=== PATIENT | female | born 1965 | race Caucasian/White ===

== ENCOUNTER → 2017-01-26 | Outpatient (CLI) | payer OTHER ==
[~2017-01-26] MED LIST: ALPR.5 PO; ASPI325 PO; Flonase 0.05% N16 GM; METHI10 PO; METO100ER PO; METO50 PO; MIRT15 PO; PSEU120ER PO; Prednisone20 MG PO
[2017-01-26 11:05] LABS: Free Thyroxine 3.03 ng/dL (0.70-1.60)
[2017-01-26 11:10] LABS: Thyroid Stimulating Hormone <0.007 uIU/mL (0.360-4.800)
== END | disposition home or self-care (01) ==
LOC: LAB EV 10:43
PROVIDERS: Physician Assistant
DX: E05.00 Thyrotoxicosis with diffuse goiter without thyrotoxic crisis or storm (principal)
CPT/HCPCS: 84439; 84443; 84481

== ENCOUNTER 2017-05-02 10:44 | Emergency (ER) | payer OTHER ==
[~2017-05-02] VITALS: Ht 157.5 cm; Wt 45.4 kg
[2017-05-02 11:11] LABS: BASOPHILS ABSOLUTE AUTO 0.02 K/mm3 (0.00-0.23); BASOPHILS PERCENT AUTO 0 % (0-2); EOSINOPHILS ABSOLUTE AUTO 0.08 K/mm3 (0.00-0.68); EOSINOPHILS PERCENT AUTO 1 % (0-6); Hematocrit 41.3 % (33.0-51.0); Hemoglobin 13.4 g/dL (11.5-16.0); IMMATURE GRAN ABSOLUTE AUTO 0.01 K/mm3 (0.00-0.10); IMMATURE GRAN PERCENT AUTO 0 % (0-1); LYMPHOCYTES PERCENT AUTO 44 % (21-46); MONOCYTES ABSOLUTE AUTO 0.64 K/mm3 (0.16-1.47); MONOCYTES PERCENT AUTO 10 % (4-13); Mean Corpuscular HGB 27.9 pg (26.0-34.0); Mean Corpuscular HGB Conc 32.4 g/dL (31.5-36.5); Mean Corpuscular Volume 86 fL (80-100); NEUTROPHILS ABSOLUTE AUTO 3.01 K/mm3 (1.96-9.15); NEUTROPHILS PERCENT AUTO 45 % (41-73); Platelet Count 252 K/mm3 (150-400); RDW Coefficient Variation 13.7 % (11.7-14.2); RDW Standard Deviation 42.7 fL (35.1-46.3); White Blood Cell Count 6.66 K/mm3 (4.00-11.30)
[2017-05-02] MEDS ORDERED: MIRT15 PO (11:33)
[2017-05-02] MEDS ORDERED: METO50 PO (11:33)
[2017-05-02] MEDS ORDERED: ALPR.5 PO (11:33)
[2017-05-02] MEDS ORDERED: ASPI325 PO (11:34)
[2017-05-02 11:50] LABS: Troponin I <0.015 ng/mL (0.000-0.040)
[2017-05-02 11:57] LABS: Alanine Aminotransfer (ALT/SGP 20 U/L (12-78); Albumin, Blood 3.2 g/dL (3.4-5.0); Albumin/Globulin Ratio 0.8 (0.8-1.8); Alk Phos 116 U/L (50-136); Anion Gap 9 mmol/L (6-16); Aspartate Aminotrans (AST/SGOT 42 U/L (12-37); Bilirubin, Total 0.5 mg/dL (0.1-1.0); Blood Urea Nitrogen 11 mg/dL (8-24); Bun/Creatinine Ratio 25.3 (12.0-20.0); CO2, Blood 25 mmol/L (21-32); Calcium, Blood 9.7 mg/dL (8.5-10.1); Chloride, Blood 105 mmol/L (98-108); Creatinine, Blood 0.43 mg/dL (0.40-1.00); Globulin, Blood 3.9 g/dL (2.2-4.0); Glomerular Filtration Rate >60 (60-); Glucose, Blood 107 mg/dL (70-99); Potassium, Blood 4.3 mmol/L (3.5-5.5); Sodium, Blood 139 mmol/L (136-145); Thyroid Stimulating Hormone <0.005 uIU/mL (0.360-4.800); Total Protein, Blood 7.1 g/dL (6.4-8.2)
[2017-12-17] MEDS ORDERED: Prednisone20 MG PO (04:46)
== END 2017-05-02 13:20 | disposition home or self-care (01) ==
LOC: ER 10:44
PROVIDERS: Emergency Medicine
DX: R00.2 Palpitations (principal); R42 Dizziness and giddiness; R11.10 Vomiting, unspecified; F17.210 Nicotine dependence, cigarettes, uncomplicated; Z79.899 Other long term (current) drug therapy; Z79.82 Long term (current) use of aspirin
CPT/HCPCS: 36415; 78452; 80053; 84443; 84484; 85025; 93005; 93010; 93017; 93306; 96374; 99284; A9500; J0280; J2405; J2785; J7030

== ENCOUNTER 2017-07-21 09:04 | Emergency (ER) | payer OTHER ==
[~2017-07-21] VITALS: Ht 157.5 cm; Wt 50.8 kg
[~2017-07-21 09:04] MED LIST changes: -Flonase 0.05% N16 GM; -METHI10 PO; -METO100ER PO; -PSEU120ER PO; -Prednisone20 MG PO
[2017-07-21] MEDS ORDERED: METO100ER PO (10:19)
== END 2017-07-21 10:36 | disposition home or self-care (01) ==
LOC: ER 09:04
DX: S80.261A Insect bite (nonvenomous), right knee, initial encounter (principal); F17.210 Nicotine dependence, cigarettes, uncomplicated; Z88.0 Allergy status to penicillin; Z88.8 Allergy status to other drugs, medicaments and biological substances; Z88.5 Allergy status to narcotic agent; Z79.82 Long term (current) use of aspirin; Z79.899 Other long term (current) drug therapy; W57.XXXA Bitten or stung by nonvenomous insect and other nonvenomous arthropods, initial encounter
CPT/HCPCS: 99282

== ENCOUNTER 2017-08-19 18:46 | Emergency (ER) | payer OTHER ==
[~2017-08-19] VITALS: Ht 157.5 cm; Wt 54.4 kg
[~2017-08-19 18:46] MED LIST changes: +METO100ER PO
[2017-08-19] MEDS ORDERED: METHI10 PO (20:44)
[2017-08-19] MEDS ORDERED: PSEU120ER PO (21:05)
[2017-08-19] MEDS ORDERED: Flonase 0.05% N16 GM (21:05)
== END 2017-08-19 21:12 | disposition home or self-care (01) ==
LOC: ER 18:46
DX: G43.909 Migraine, unspecified, not intractable, without status migrainosus (principal); J32.9 Chronic sinusitis, unspecified; F17.210 Nicotine dependence, cigarettes, uncomplicated; Z88.0 Allergy status to penicillin; Z88.8 Allergy status to other drugs, medicaments and biological substances; Z88.5 Allergy status to narcotic agent; Z79.82 Long term (current) use of aspirin; Z79.899 Other long term (current) drug therapy
CPT/HCPCS: 96372; 99283; J1885